=== PATIENT | female | born 1965 | race Caucasian/White ===

== ENCOUNTER 2019-01-15 10:53 | Inpatient (IN) | payer OTHER ==
[~2019-01-15] VITALS: Ht 165.1 cm; Wt 78.9 kg
--- NOTE | 2019-01-15 13:30 | NUR ---
MS RN NOTES RECEIVED PT REPORT FROM YOLANDA MOSER AT [facility].
--- NOTE | 2019-01-15 14:45 | NUR ---
MS RN NOTES PT ARRIVAL ON UNIT BY SHANTA. FAMILY AT BEDSIDE. WILL ASSESS PT.
[2019-01-15] MEDS ORDERED: SIMV40TA5 PO (15:32)
[2019-01-15] MEDS ORDERED: ASPI-1152 PO (15:32)
[2019-01-15] MEDS ORDERED: METF-442 PO (15:32)
[2019-01-15] MEDS ORDERED: LISI2.5T2 PO (15:32)
[2019-01-15] MEDS ORDERED: GLIP10TA11 PO (15:32)
[2019-01-15] MEDS ORDERED: INSU100I26 SQ (15:32)
[2019-01-15] MEDS ORDERED: IV NS 0.9% 1,000 ML IV PRN (15:46)
[2019-01-15] MEDS ORDERED: HYDROCODONE/APAP 5/325MG 1 EACH TABLET PO PRN (16:00)
[2019-01-15] MEDS ORDERED: ONDANSETRON HCL/PF 4 MG/2 ML VIAL IVP PRN (16:00)
[2019-01-15] MEDS ORDERED: MAG HYDROX/AL HYDROX/SIMETH 30 ML UDC PO PRN (16:00)
[2019-01-15] MEDS ORDERED: Z GUARD REMEDY 2 OZ OINT TP PRN (16:00)
[2019-01-15] MEDS ORDERED: MAGNESIUM HYDROXIDE 30 ML UDC PO PRN (16:00)
[2019-01-15] MEDS ORDERED: ACETAMINOPHEN 325 MG TABLET PO PRN (16:00)
[2019-01-15] MEDS ORDERED: ZOLPIDEM TARTRATE 5 MG TABLET PO PRN (16:00)
[2019-01-15] MEDS ORDERED: DEXTROSE 50%-WATER 50 ML DISP.SYRIN IV PRN (16:00)
[2019-01-15 16:59] LABS: BASOPHILS % (AUTO) 0.4 % (0.0-2.0); EOSINOPHILS % (AUTO) 0.4 % (0.0-6.0); HEMATOCRIT 36 % (33-45); HEMOGLOBIN 11.9 g/dL (11.5-14.8); LYMPHOCYTES # (AUTO) 0.6 /CMM (0.8-4.8); LYMPHOCYTES % (AUTO) 12.9 % (20.0-44.0); MEAN CORPUSCULAR HGB CONC 33 g/dl (31.0-36.0); MEAN CORPUSCULAR VOLUME 84 fL (82-100); MONOCYTES # (AUTO) 0.2 /CMM (0.1-1.30); NEUTROPHILS # (AUTO) 3.6 /CMM (1.8-8.9); NEUTROPHILS % (AUTO) 82.3 % (43.0-81.0); PLATELET COUNT (AUTO) 119 /CMM (150-450); WHITE BLOOD COUNT (AUTO) 4.3 K/uL (4.3-11.0)
[2019-01-15 17:09] LABS: CALCIUM, SERUM 8.3 mg/dL (8.5-10.1); CREATININE 0.7 mg/dL (0.6-1.3); POTASSIUM 3.5 mmol/L (3.5-5.1)
[2019-01-15] MEDS: glipiZIDE 10 MG TABLET PO SCH (17:09)
[2019-01-15] MEDS: BLOOD SUGAR DIAGNOSTIC 1 EACH STRIP VI SCH ×2 (17:10→22:57)
[2019-01-15 17:14] LABS: ALBUMIN 3.1 g/dL (3.4-5.0); BILIRUBIN,TOTAL 0.4 mg/dL (0.2-1.0); MAGNESIUM 2.2 mg/dL (1.8-2.4); PHOSPHORUS 2.9 mg/dL (2.5-4.9); TOTAL PROTEIN, SERUM 6.2 g/dL (6.4-8.2)
[2019-01-15 17:22] LABS: THYROID STIMULATING HORMONE 1.614 uIU/mL (0.358-3.74)
--- NOTE | 2019-01-15 17:25 | NUR ---
MS RN NOTES CALLED PHARMACY FOR MEDICATION ROCEPHIN 1G IN IV D5W DUE TO MEDICATION NOT AVAILABLE ON SCHEDULED TIME. AWAITING FOR PHARMACY TO BRING MEDICATION.
[2019-01-15] MEDS: LISINOPRIL (5MG) 5 MG TABLET PO SCH (17:31)
[2019-01-15] MEDS: ENOXAPARIN SODIUM 40 MG/0.4 ML DISP.SYRIN SQ SCH (17:40)
[2019-01-15] MEDS: CEFTRIAXONE 1 G in IV D5W 50 ML IV SCH (18:32)
--- NOTE | 2019-01-15 18:37 | NUR ---
MS RN NOTES SHANTI HUDSON AT [facility] CALLED TO REPORT GRAM NEG BACILI POSITIVE BLOOD CULTURE IDENTIFIED FOR PT
--- NOTE | 2019-01-15 19:15 | NUR ---
MS RN NOTES ENDORSED PT TO PM SHIFT FOR YONAS. PT RESTING IN BED, WITH AT BEDSIDE. PT NOT IN DISTRESS. ALL NEEDS ATTENDED TO.
[2019-01-15 20:00] VITALS: BP 108/65
[2019-01-15] MEDS: *INSULIN REGULAR(HUMULIN R)HUM 100 UNIT/ML VIAL SQ PRN (22:53)
[2019-01-15] MEDS: INSULIN GLARGINE, 100 UNIT/ML CARTRIDGE SQ SCH (22:55)
[2019-01-15] MEDS: SIMVASTATIN 40 MG TABLET PO SCH (22:56)
[2019-01-16 04:00] VITALS: BP 107/58
--- NOTE | 2019-01-16 05:27 | NUR ---
RN CLOSING NOTES PATIENT WITH NO ACUTE DISTRESS AND DENIES ANY PAIN AND DISCOMFORT OVERNIGHT. DENIES ANY DYSURIA, NO HEMATURIA OBSERVED. URINE SPECIMEN COLLECTED, SENT TO LABS. IVF AND ATB ORDERED. PATIENT IS AMBULATORY WITH STEADY GAIT. NEEDS ANTICIPATED AND MET. CALL LIGHT IN REACH. WILL ENDORSE ACCORDINGLY.
[2019-01-16 06:25] LABS: APPEARANCE,URINE CLEAR (CLEAR); BILIRUBIN,URINE NEGATIVE (NEGATIVE); BLOOD, URINE NEGATIVE Ery/uL (NEGATIVE); COLOR,URINE YELLOW (YELLOW); KETONES,URINE NEGATIVE (NEGATIVE); LEUKOCYTE ESTERASE ,URINE TRACE (NEGATIVE); NITRITE, URINE NEGATIVE (NEGATIVE); PROTEIN,URINE NEGATIVE (NEGATIVE); UGLUCOSE NEGATIVE (NEGATIVE); UROBILINOGEN,URINE 0.2 EU/dL (0.2)
[2019-01-16 07:21] LABS: BASOPHILS % (AUTO) 0.5 % (0.0-2.0); EOSINOPHILS % (AUTO) 1.2 % (0.0-6.0); HEMATOCRIT 36 % (33-45); HEMOGLOBIN 11.9 g/dL (11.5-14.8); LYMPHOCYTES % (AUTO) 24.6 % (20.0-44.0); MEAN CORPUSCULAR HGB CONC 33 g/dl (31.0-36.0); MEAN CORPUSCULAR VOLUME 83 fL (82-100); MONOCYTES # (AUTO) 0.3 /CMM (0.1-1.30); MONOCYTES % (AUTO) 7.5 % (2.0-12.0); NEUTROPHILS # (AUTO) 2.6 /CMM (1.8-8.9); NEUTROPHILS % (AUTO) 66.2 % (43.0-81.0); PLATELET COUNT (AUTO) 114 /CMM (150-450); RED BLOOD CELL COUNT(AUTO) 4.34 MIL/uL (4.0-5.2); WHITE BLOOD COUNT (AUTO) 3.9 K/uL (4.3-11.0)
[2019-01-16 07:42] LABS: BACTERIA,URINE Few /HPF (None Seen); RBC,URINE 0-2 /HPF (0-2); SQUAMOUS EPITHELIAL CELL,UR Few /HPF (None Seen)
[2019-01-16 07:52] LABS: CALCIUM, SERUM 8.5 mg/dL (8.5-10.1); CREATININE 0.6 mg/dL (0.6-1.3); MAGNESIUM 2.1 mg/dL (1.8-2.4); PHOSPHORUS 3.2 mg/dL (2.5-4.9); POTASSIUM 3.8 mmol/L (3.5-5.1)
[2019-01-16 08:00] VITALS: BP_SYST 127; BP_SYST 164; BP_DIAS 68; BP_DIAS 86
[2019-01-16] MEDS: METFORMIN 500 MG TABLET PO SCH (09:28)
[2019-01-16] MEDS: ASPIRIN EC 81 MG TABLET.DR PO SCH (09:28)
[2019-01-16] MEDS: LISINOPRIL (5MG) 5 MG TABLET PO SCH (09:28)
[2019-01-16] MEDS: glipiZIDE 10 MG TABLET PO SCH ×2 (09:28→16:48)
[2019-01-16] MEDS: BLOOD SUGAR DIAGNOSTIC 1 EACH STRIP VI SCH ×4 (09:28→22:03)
[2019-01-16] MEDS: INSULIN REGULAR, HUMAN 100 UNIT/ML 3 ML VIAL SQ PRN ×2 (09:43→17:40)
[2019-01-16 16:00] VITALS: BP_SYST 87; BP_SYST 93; BP_DIAS 44; BP_DIAS 53
[2019-01-16] MEDS: CEFTRIAXONE 1 G in IV D5W 50 ML IV SCH (16:48)
--- NOTE | 2019-01-16 19:20 | NUR ---
RN NOTES Received patient A/O x4, Surinamese speaking, sitting on bed, with family at bedside. Patient noted ambulatory, steady gait, no discomfort noted at this time. Afebrile, no SOB/respiratory distress noted. With patent peripheral IV line LAC G#18, SL, able to take PO water as tolerated. Awaiting for U/A culture result. Will continue to monitor accordingly.
[2019-01-16] MEDS: SIMVASTATIN 40 MG TABLET PO SCH (21:28)
[2019-01-16] MEDS: ENOXAPARIN SODIUM 40 MG/0.4 ML DISP.SYRIN SQ SCH (21:28)
[2019-01-16] MEDS: INSULIN GLARGINE, 100 UNIT/ML CARTRIDGE SQ SCH (21:55)
--- NOTE | 2019-01-16 22:00 | NUR ---
RN NOTES Patient back to bed, clean, dry, comfortable. Family left the unit at this time. Will continue to monitor patient accordingly.
[2019-01-16] MEDS: *INSULIN REGULAR(HUMULIN R)HUM 100 UNIT/ML VIAL SQ PRN (22:03)
[2019-01-17] VITALS: BP 101/54
[2019-01-17 06:13] LABS: BASOPHILS % (AUTO) 0.5 % (0.0-2.0); EOSINOPHILS % (AUTO) 2.3 % (0.0-6.0); HEMATOCRIT 36 % (33-45); LYMPHOCYTES # (AUTO) 1.7 /CMM (0.8-4.8); LYMPHOCYTES % (AUTO) 35.9 % (20.0-44.0); MEAN CORPUSCULAR HGB CONC 33 g/dl (31.0-36.0); MEAN CORPUSCULAR VOLUME 82 fL (82-100); MONOCYTES # (AUTO) 0.4 /CMM (0.1-1.30); MONOCYTES % (AUTO) 8.4 % (2.0-12.0); NEUTROPHILS # (AUTO) 2.5 /CMM (1.8-8.9); NEUTROPHILS % (AUTO) 52.9 % (43.0-81.0); PLATELET COUNT (AUTO) 148 /CMM (150-450); RED BLOOD CELL COUNT(AUTO) 4.35 MIL/uL (4.0-5.2); WHITE BLOOD COUNT (AUTO) 4.7 K/uL (4.3-11.0)
[2019-01-17 06:23] LABS: CALCIUM, SERUM 8.7 mg/dL (8.5-10.1); CREATININE 0.6 mg/dL (0.6-1.3); MAGNESIUM 2.2 mg/dL (1.8-2.4); PHOSPHORUS 4.2 mg/dL (2.5-4.9); POTASSIUM 3.7 mmol/L (3.5-5.1)
--- NOTE | 2019-01-17 07:00 | NUR ---
RN CLOSING NOTES Patient asleep on bed. Afebrile the whole shift. No new complaints made. All due meds given as ordere, no ASE noted. On RA, no sob/respiratory distress noted. No discomfort noted at this time. All nursing needs attended, met. Awaiting for urine culture result. Endorsed to the next shift.
--- NOTE | 2019-01-17 07:00 | NUR ---
MS RN NOTES RECEIVED PT IN BED, ON ROOM AIR. TOLERATING WELL. NO S/SX OF DISTRESS. PT REPORTED NO PAIN/DISCOMFORT. URINATING W/O COMPLAINT. LUNG SOUNDS CLEAR TO AUSCULTATION. HR REGULAR. IV SL. PT EXPRESSED WANTING TO BE DISCHARGED. BED IN LOCKED/LOWEST POSITION. CALL LIGHT IN REACH.
[2019-01-17 08:00] VITALS: BP 96/58
[2019-01-17] MEDS: BLOOD SUGAR DIAGNOSTIC 1 EACH STRIP VI SCH ×2 (08:00→11:33)
[2019-01-17] MEDS: ASPIRIN EC 81 MG TABLET.DR PO SCH (08:10)
[2019-01-17] MEDS: METFORMIN 500 MG TABLET PO SCH (08:10)
[2019-01-17 09:01] VITALS: BP 96/58
[2019-01-17] MEDS: glipiZIDE 10 MG TABLET PO SCH (09:01)
[2019-01-17] MEDS: LISINOPRIL (5MG) 5 MG TABLET PO SCH (09:01)
[2019-01-17] MEDS ORDERED: CEPH-570 PO (11:29)
[2019-01-17] MEDS: INSULIN REGULAR, HUMAN 100 UNIT/ML 3 ML VIAL SQ PRN (11:43)
--- NOTE | 2019-01-17 13:43 | NUR ---
MS RN NOTES PT LEFT WITH ; WALKED OFF UNIT WITH DISCHARGE INSTRUCTIONS/IV REMOVED/ID BAND REMOVED. PRESCRIPTION GIVEN. EDUCATION PROVIDED WITH ORALIA FAY. ALL NEEDS ATTENDED TO.
== END 2019-01-17 13:45 | disposition home or self-care (01) | DRG 463 ==
LOC: MEDSG1 14:51
PROVIDERS: ADMIT Internal Medicine; ATTEND Internal Medicine
DX: N39.0 Urinary tract infection, site not specified (principal); E11.65 Type 2 diabetes mellitus with hyperglycemia; B96.89 Other specified bacterial agents as the cause of diseases classified elsewhere; E78.5 Hyperlipidemia, unspecified; I10 Essential (primary) hypertension; K21.9 Gastro-esophageal reflux disease without esophagitis; Z96.659 Presence of unspecified artificial knee joint
CPT/HCPCS: 36415; 71046; 80048-TC; 80053-TC; 80061-TC; 81000-TC; 82962-TC; 83605-TC; 83735-TC; 84100-TC; 84443-TC; 85025-TC; 87081-TC; 87086-TC; G0378; J0696; J1650; J1815; J7030; J7050; J7060